=== PATIENT | male | born 1990 ===

== ENCOUNTER 2021-10-15 00:46 | Emergency (ER) | payer OTHER ==
[~2021-10-15] VITALS: Ht 177.8 cm; Wt 74.8 kg
[2021-10-16] MEDS ORDERED: METO10 PO (12:50)
== END 2021-10-15 04:05 | disposition home or self-care (01) ==
LOC: ER 00:46
DX: R51.9 Headache, unspecified (principal); F17.210 Nicotine dependence, cigarettes, uncomplicated
CPT/HCPCS: 96374; 96375; 99283-25; J1100; J1200; J1885

== ENCOUNTER 2021-10-16 07:01 | Emergency (ER) | payer OTHER ==
[~2021-10-16] VITALS: Ht 177.8 cm; Wt 74.8 kg
[2021-10-16] MEDS ORDERED: METO10 PO (12:50)
[2021-10-17] MEDS ORDERED: CLIN300 PO (18:21)
[2021-10-17] MEDS ORDERED: OXYC5 PO (18:21)
== END 2021-10-16 12:52 | disposition home or self-care (01) ==
LOC: ER 07:01
DX: G43.909 Migraine, unspecified, not intractable, without status migrainosus (principal); F17.200 Nicotine dependence, unspecified, uncomplicated
CPT/HCPCS: 70450; 96374; 96375; 99284-25; J1200; J1790; J2765; J7030

== ENCOUNTER 2021-10-17 17:13 | Emergency (ER) | payer OTHER ==
[~2021-10-17] VITALS: Ht 177.8 cm; Wt 76.7 kg
[~2021-10-17 17:13] MED LIST: METO10 PO
[2021-10-17] MEDS ORDERED: OXYC5 PO (18:21)
[2021-10-17] MEDS ORDERED: CLIN300 PO (18:21)
== END 2021-10-17 18:48 | disposition home or self-care (01) ==
LOC: ER 17:13
DX: K02.9 Dental caries, unspecified (principal); F17.210 Nicotine dependence, cigarettes, uncomplicated; Z88.2 Allergy status to sulfonamides; Z88.8 Allergy status to other drugs, medicaments and biological substances
CPT/HCPCS: 99282

== ENCOUNTER 2024-02-19 12:14 | Emergency (ER) | payer OTHER ==
[~2024-02-19] VITALS: Ht 175.3 cm; Wt 72.6 kg
[~2024-02-19 12:14] MED LIST changes: +CLIN300 PO; +OXYC5 PO
[2024-02-19 12:27] VITALS: BP 144/97
[2024-02-19 12:41] LABS: BASOPHILS ABSOLUTE AUTO 0.05 K/mm3 (0.00-0.23); BASOPHILS PERCENT AUTO 1 % (0-2); EOSINOPHILS ABSOLUTE AUTO 0.35 K/mm3 (0.00-0.68); EOSINOPHILS PERCENT AUTO 4 % (0-6); Hematocrit 45.1 % (37.0-53.0); Hemoglobin 15.8 g/dL (13.5-17.5); IMMATURE GRAN ABSOLUTE AUTO 0.01 K/mm3 (0.00-0.10); IMMATURE GRAN PERCENT AUTO 0 % (0-1); LYMPHOCYTES ABSOLUTE AUTO 2.61 K/mm3 (0.84-5.20); LYMPHOCYTES PERCENT AUTO 33 % (21-46); MONOCYTES ABSOLUTE AUTO 0.61 K/mm3 (0.16-1.47); MONOCYTES PERCENT AUTO 8 % (4-13); Mean Corpuscular HGB 32.6 pg (26.0-34.0); Mean Corpuscular Volume 93 fL (80-100); Mean Platelet Volume 9.7 fL (9.1-12.4); NEUTROPHILS ABSOLUTE AUTO 4.32 K/mm3 (1.96-9.15); NEUTROPHILS PERCENT AUTO 54 % (41-73); Platelet Count 323 K/mm3 (150-400); RDW Coefficient Variation 12.9 % (11.7-14.2); RDW Standard Deviation 43.8 fL (35.1-46.3); Red Blood Cell Count 4.85 M/mm3 (4.30-5.90); White Blood Cell Count 7.95 K/mm3 (4.00-11.30)
[2024-02-19 13:04] LABS: Albumin, Blood 4.3 g/dL (3.4-5.0); Albumin/Globulin Ratio 1.2 (0.8-1.8); Bilirubin, Total 0.9 mg/dL (0.1-1.0); Bun/Creatinine Ratio 11.9 (12.0-20.0); Calcium, Blood 9.8 mg/dL (8.5-10.1); Creatinine, Blood 1.09 mg/dL (0.60-1.20); Globulin, Blood 3.6 g/dL (2.2-4.0); Potassium, Blood 4.4 mmol/L (3.5-5.5); Total Protein, Blood 7.9 g/dL (6.4-8.2)
[2024-02-19] MEDS ORDERED: Acetaminophen 325 MG TABLET PO ONE (14:20)
== END 2024-02-19 14:35 | disposition home or self-care (01) ==
LOC: ER 12:14
PROVIDERS: Physician Assistant
DX: R55 Syncope and collapse (principal)
CPT/HCPCS: 71046; 80053; 85025; 93005; 93010; 99284-25; A9270

== ENCOUNTER 2024-03-24 06:56 | Emergency (ER) | payer OTHER ==
[~2024-03-24] VITALS: Ht 165.1 cm; Wt 63.5 kg
[2024-03-24 07:17] VITALS: BP 137/93
[2024-03-24] MEDS ORDERED: METPRE4DP PO (07:44)
== END 2024-03-24 07:51 | disposition home or self-care (01) ==
LOC: ER 06:56
DX: M54.16 Radiculopathy, lumbar region (principal); G43.909 Migraine, unspecified, not intractable, without status migrainosus; F17.210 Nicotine dependence, cigarettes, uncomplicated; Z88.2 Allergy status to sulfonamides
CPT/HCPCS: 99283

== ENCOUNTER 2024-08-16 09:15 | Emergency (ER) | payer OTHER ==
[~2024-08-16] VITALS: Ht 175.3 cm; Wt 82.5 kg
[~2024-08-16 09:15] MED LIST changes: +METPRE4DP PO
[2024-08-16 09:32] VITALS: BP 130/80
[2024-08-16] MEDS ORDERED: Ipratropium/Albuterol SulF 2.5-0.5MG/3 ML Amp INH ONE (09:50)
[2024-08-16 10:58] LABS: CORONAVIRUS COVID-19 AG Negative (NEGATIVE); INFLUENZA A AG Negative (NEGATIVE); INFLUENZA B AG Negative (NEGATIVE)
[2024-08-16] MEDS ORDERED: Dexamethasone Sod Phos 10 MG/ML 1ML VIAL PO ONE (12:15)
[2024-08-16] MEDS ORDERED: Albuterol 2.5 MG/3 ML VIAL INH SCH (12:15)
[2024-08-16] MEDS ORDERED: ALBU90OI INH (13:19)
== END 2024-08-16 13:49 | disposition home or self-care (01) ==
LOC: ER 09:15
PROVIDERS: Student in an Organized Health Care Education/Training Program
DX: J20.9 Acute bronchitis, unspecified (principal); B34.9 Viral infection, unspecified; G43.909 Migraine, unspecified, not intractable, without status migrainosus; F17.210 Nicotine dependence, cigarettes, uncomplicated; Z88.2 Allergy status to sulfonamides; Z88.8 Allergy status to other drugs, medicaments and biological substances
CPT/HCPCS: 71046; 87428-QW; 94640; 94644; 94664; 99284-25; J1100

== ENCOUNTER 2024-08-19 08:14 | Emergency (ER) | payer OTHER ==
[~2024-08-19] VITALS: Ht 175.3 cm; Wt 82.5 kg
[~2024-08-19 08:14] MED LIST changes: +ALBU90OI INH
[2024-08-19 09:11] LABS: Albumin, Blood 4.2 g/dL (3.4-5.0); Albumin/Globulin Ratio 1.2 (0.8-1.8); Bun/Creatinine Ratio 15.9 (12.0-20.0); Calcium, Blood 9.8 mg/dL (8.5-10.1); Creatinine, Blood 0.95 mg/dL (0.60-1.20); Globulin, Blood 3.6 g/dL (2.2-4.0); Potassium, Blood 3.9 mmol/L (3.5-5.5); Total Protein, Blood 7.8 g/dL (6.4-8.2)
[2024-08-19 09:36] LABS: BASOPHILS ABSOLUTE AUTO 0.06 K/mm3 (0.00-0.23); BASOPHILS PERCENT AUTO 1 % (0-2); EOSINOPHILS PERCENT AUTO 7 % (0-6); Hematocrit 43.7 % (37.0-53.0); Hemoglobin 15.4 g/dL (13.5-17.5); IMMATURE GRAN ABSOLUTE AUTO 0.07 K/mm3 (0.00-0.10); IMMATURE GRAN PERCENT AUTO 1 % (0-1); LYMPHOCYTES ABSOLUTE AUTO 1.87 K/mm3 (0.84-5.20); LYMPHOCYTES PERCENT AUTO 18 % (21-46); MONOCYTES ABSOLUTE AUTO 0.84 K/mm3 (0.16-1.47); MONOCYTES PERCENT AUTO 8 % (4-13); Mean Corpuscular HGB 33.2 pg (26.0-34.0); Mean Corpuscular HGB Conc 35.2 g/dL (31.5-36.5); Mean Corpuscular Volume 94 fL (80-100); NEUTROPHILS PERCENT AUTO 65 % (41-73); RDW Coefficient Variation 13.3 % (11.7-14.2); RDW Standard Deviation 46.1 fL (35.1-46.3); Red Blood Cell Count 4.64 M/mm3 (4.30-5.90); White Blood Cell Count 10.14 K/mm3 (4.00-11.30)
[2024-08-19 09:42] LABS: Mean Platelet Volume 9.6 fL (9.1-12.4); Platelet Count 232 K/mm3 (150-400)
[2024-08-19] MEDS ORDERED: Ketorolac Tromethamine 15mg Vial IV ONE (10:15)
[2024-08-19] MEDS ORDERED: AMOCLA875 PO (10:17)
[2024-08-19 10:34] VITALS: BP 148/90
== END 2024-08-19 10:35 | disposition home or self-care (01) ==
LOC: ER 08:14
PROVIDERS: Student in an Organized Health Care Education/Training Program
DX: R55 Syncope and collapse (principal); J32.9 Chronic sinusitis, unspecified; Z79.52 Long term (current) use of systemic steroids; Z88.2 Allergy status to sulfonamides; Z87.891 Personal history of nicotine dependence
CPT/HCPCS: 70450; 80053; 85025; 93005; 93010; 96374; 99284-25; J1885

== ENCOUNTER 2024-11-09 09:26 | Emergency (ER) | payer OTHER ==
[~2024-11-09] VITALS: Ht 175.3 cm; Wt 70.3 kg
[~2024-11-09 09:26] MED LIST changes: +AMOCLA875 PO
[2024-11-09 10:05] VITALS: BP 135/76
[2024-11-09] MEDS ORDERED: NAPROXEN250 M1 PO (10:59)
== END 2024-11-09 11:07 | disposition home or self-care (01) ==
LOC: ER 09:26
DX: M25.511 Pain in right shoulder (principal); R20.2 Paresthesia of skin; F17.200 Nicotine dependence, unspecified, uncomplicated
CPT/HCPCS: 72040; 73030; 99283-25

== ENCOUNTER 2025-04-28 11:18 | Emergency (ER) | payer OTHER ==
[~2025-04-28] VITALS: Ht 175.3 cm; Wt 70.3 kg
[~2025-04-28 11:18] MED LIST changes: +NAPROXEN250 M1 PO
[2025-04-28 11:59] LABS: BASOPHILS ABSOLUTE AUTO 0.04 K/mm3 (0.00-0.23); BASOPHILS PERCENT AUTO 0 % (0-2); EOSINOPHILS ABSOLUTE AUTO 0.34 K/mm3 (0.00-0.68); EOSINOPHILS PERCENT AUTO 4 % (0-6); Hematocrit 42.1 % (37.0-53.0); Hemoglobin 14.1 g/dL (13.5-17.5); IMMATURE GRAN ABSOLUTE AUTO 0.03 K/mm3 (0.00-0.10); IMMATURE GRAN PERCENT AUTO 0 % (0-1); LYMPHOCYTES ABSOLUTE AUTO 2.71 K/mm3 (0.84-5.20); LYMPHOCYTES PERCENT AUTO 30 % (21-46); MONOCYTES ABSOLUTE AUTO 0.56 K/mm3 (0.16-1.47); MONOCYTES PERCENT AUTO 6 % (4-13); Mean Corpuscular HGB Conc 33.5 g/dL (31.5-36.5); Mean Corpuscular Volume 94 fL (80-100); NEUTROPHILS ABSOLUTE AUTO 5.25 K/mm3 (1.96-9.15); NEUTROPHILS PERCENT AUTO 59 % (41-73); NRBC ABSOLUTE 0.00 K/mm3 (0.00-0.02); NRBC Auto 0.0 /100 WBC (0.0-0.2); Platelet Count 326 K/mm3 (150-400); RDW Coefficient Variation 12.6 % (11.7-14.2); RDW Standard Deviation 43.8 fL (35.1-46.3)
[2025-04-28 12:12] LABS: Alanine Aminotransfer (ALT/SGP 51.0 U/L (12-78); Albumin, Blood 3.7 g/dL (3.4-5.0); Albumin/Globulin Ratio 1.1 (0.8-1.8); Anion Gap 7.0 mmol/L (3-11); Aspartate Aminotrans (AST/SGOT 23.0 U/L (12-37); Bilirubin, Total 0.4 mg/dL (0.1-1.0); Blood Urea Nitrogen 17.0 mg/dL (8-24); CO2, Blood 27.0 mmol/L (21-32); Calcium, Blood 9.2 mg/dL (8.5-10.1); Chloride, Blood 108.0 mmol/L (98-108); Creatinine, Blood 0.96 mg/dL (0.60-1.20); Globulin, Blood 3.5 g/dL (2.2-4.0); Glucose, Blood 103.0 mg/dL (70-99); Potassium, Blood 4.0 mmol/L (3.5-5.5); Sodium, Blood 138.0 mmol/L (136-145); Total Protein, Blood 7.2 g/dL (6.4-8.2)
[2025-04-28 12:28] LABS: Source, Urine Clean Catch
[2025-04-28 12:30] LABS: Bilirubin, Urine Neg (Neg); Glucose Qualitative, Urine Neg (Neg); Ketones, Urine Neg (Neg); Leukocyte Esterase, Urine Neg (Neg); Protein, Urine Neg (Neg); Specific Gravity, Urine 1.015 (1.003-1.022); Urobilinogen, Urine NORM (Normal)
[2025-04-28 12:35] LABS: Color, Urine Pale Yellow (P-Yellow)
[2025-04-28] MEDS ORDERED: MUPIROCIN2210 TOP (13:17)
[2025-04-28 13:47] VITALS: BP 117/81
[2025-05-03] MEDS ORDERED: CEPH500 PO (08:39)
== END 2025-04-28 13:47 | disposition home or self-care (01) ==
LOC: ER 11:18
PROVIDERS: Emergency Medicine
DX: L01.00 Impetigo, unspecified (principal); Z88.2 Allergy status to sulfonamides; Z79.899 Other long term (current) drug therapy; F17.200 Nicotine dependence, unspecified, uncomplicated; Z59.89 Other problems related to housing and economic circumstances
CPT/HCPCS: 80053; 81003; 83690; 85025; 87070; 87077; 87186; 87205; 99284

== ENCOUNTER 2025-05-05 15:32 | Emergency (ER) | payer OTHER ==
[~2025-05-05] VITALS: Ht 175.3 cm; Wt 74.8 kg
[~2025-05-05 15:32] MED LIST changes: +CEPH500 PO; +MUPIROCIN2210 TOP
[2025-05-05 15:39] VITALS: BP 135/91
[2025-05-05] MEDS ORDERED: Ondansetron 4 MG SoluTab SL ONE (15:45)
[2025-05-05] MEDS ORDERED: Ondansetron HCl 2 MG / ML 2ML Vial IV ONE (15:45)
[2025-05-05] MEDS ORDERED: OxyCODONE 5 mg/Acetamin 325 mg TABLET PO ONE (15:45)
[2025-05-05] MEDS ORDERED: RX Prepack 6 Tabs Oxycodone 5mg UD ONE (17:40)
[2025-05-05] MEDS ORDERED: Percocet 5-3251 EACH PO (17:58)
[2025-05-05] MEDS ORDERED: IBUP800 PO (17:58)
== END 2025-05-05 18:10 | disposition home or self-care (01) ==
LOC: ER 15:32
DX: S93.402A Sprain of unspecified ligament of left ankle, initial encounter (principal); S93.602A Unspecified sprain of left foot, initial encounter; F17.210 Nicotine dependence, cigarettes, uncomplicated; Z88.2 Allergy status to sulfonamides; Z88.8 Allergy status to other drugs, medicaments and biological substances; Z79.899 Other long term (current) drug therapy; X50.1XXA Overexertion from prolonged static or awkward postures, initial encounter
CPT/HCPCS: 73610; 73630; 90471; 90715; 99283-25; A9270

== ENCOUNTER 2025-05-12 12:18 | Emergency (ER) | payer OTHER ==
[~2025-05-12] VITALS: Ht 175.3 cm; Wt 70.3 kg
[~2025-05-12 12:18] MED LIST changes: +IBUP800 PO; +Percocet 5-3251 EACH PO
[2025-05-12 14:39] VITALS: BP 134/89
== END 2025-05-12 14:45 | disposition home or self-care (01) ==
LOC: ER 12:18
DX: S93.602A Unspecified sprain of left foot, initial encounter (principal); F17.210 Nicotine dependence, cigarettes, uncomplicated; Z88.2 Allergy status to sulfonamides; Z88.8 Allergy status to other drugs, medicaments and biological substances; Z79.1 Long term (current) use of non-steroidal anti-inflammatories (NSAID); Z79.899 Other long term (current) drug therapy; Z59.89 Other problems related to housing and economic circumstances; X50.1XXA Overexertion from prolonged static or awkward postures, initial encounter
CPT/HCPCS: 73630; 99283-25